=== PATIENT | male | born 1995 | race Two or more races ===

== ENCOUNTER 2021-06-13 09:41 | Outpatient (CLI) | payer OTHER | END 2021-06-13 09:45 | disposition home or self-care (01) | LOC: LAB 09:41 | PROVIDERS: ATTEND General Practice | DX: E55.9 Vitamin D deficiency, unspecified (principal); D17.30 Benign lipomatous neoplasm of skin and subcutaneous tissue of unspecified sites; R79.89 Other specified abnormal findings of blood chemistry ==

== ENCOUNTER 2022-01-19 08:17 | Outpatient (CLI) | payer OTHER | END 2022-01-19 08:20 | disposition home or self-care (01) | LOC: LAB 08:17 | PROVIDERS: ATTEND General Practice | DX: E78.00 Pure hypercholesterolemia, unspecified (principal); R68.89 Other general symptoms and signs; R79.89 Other specified abnormal findings of blood chemistry ==